=== PATIENT | female | born 1985 | race African-American/Black ===

== ENCOUNTER 2018-03-12 09:33 | Emergency (ER) | payer MEDICAID, SELFPAY ==
[2018-03-12 09:34] VITALS: BP 119/75; PULSE 71; RESP 16; TEMP 36.9; O2SAT 97; BMI 23.0
[2018-03-12 10:01] LABS: Mucous, Urine 0 SEEN /hpf (<or=2+)
[2018-03-12 10:06] LABS: Color, Urine Yellow (Yellow); Glucose, Dipstick Normal (Normal); Ketone-Dipstick Negative (Negative); Leukocyte Esterase-Dipstick 100 /ul (Negative); Nitrite-Dipstick Negative (Negative); Occult Blood-Urine 250 /ul (Negative); Protein-Dipstick Negative (Negative); Urine Bilirubin Dipstick Negative (Negative); Urine Clarity Sl. Cloudy (Clear); Urine Urobilinogen Normal (Normal); Urine pH 6.5 (5.0 - 8.0)
[2018-03-12 10:07] LABS: Internal QC Validated? YES +Cl - CLEAR BKGD; Pregnancy, Urine Negative Negative
[2018-03-12 10:13] LABS: Bacteria 1+ /hpf (None Seen); Red Blood Cells-Urine 25-50 SEEN /hpf (0-5); Squamous Epithelial Cells - UA 0-5 SEEN /hpf (5-10); White Blood Cells 10-25 SEEN /hpf (0-5)
--- NOTE | 2018-03-12 10:33 | ED.VISSUMM ---
- ER Visit Summary Date of Service: 03/12/18 Chief Complaint: Vaginal discharge History of Present Illness: The patient is a 33 F who presents with vaginal discharge. This is been present for about 1 week. She describes it as thick and cottage cheese like. She also notes an odor. She states that during sexual intercourse 1 week ago a condom broke so she is concerned for STD. She does have a history of prior STD. She is currently on her menstrual period and also complains of some pelvic cramping. However her pelvic cramping has actually been present for 3 weeks. Eyes any dysuria frequency urgency. She denies fevers vomiting or diarrhea. Physical Examination: Afebrile vitals normal Moist mucous membranes Heart regular rate and rhythm Lungs are clear Abdomen soft nontender nondistended Alert Test Results: Urinalysis shows 100 leukocyte esterase 10-25 WBCs 0-5 epithelial cells and 25-50 RBCs. is negative. HIV testing was sent which will be run batched on Sunday. Gonorrhea and Chlamydia testing are pending. Emergency Department Course and Treatment: Patient was given Diflucan here for presumed yeast vaginitis. She was also started on Bactrim for UTI. She does not wish to wait on the gonorrhea and Chlamydia testing. We will notify her of any positive results. Patient discharged. Treatment Plan: [] Disposition: Discharge Impression: Yeast vaginitis UTI This note was generated with [employer] dictation software. It may contain incorrect words, spelling, and punctuation that were not noted in review of the chart prior to signing ED Disposition - Plan for ED Patient: Chief Complaint: Female C/O Referrals: Care Physician,No Primary [Primary Care Provider] -
--- NOTE | 2018-03-12 10:39 | ED.DEP ---
ED Disposition - Plan for ED Patient: Chief Complaint: Female C/O Instructions: ED UTI Cystitis Female, Vaginal Infection: Yeast (Candidiasis) Prescriptions: Smz/Tmp Ds [Bactrim Ds] 1 tab PO BID #6 tab Referrals: Care Physician,No Primary [Primary Care Provider] -
[2018-03-12] MEDS: Fluconazole 100 MG Tablet 150 MG PO (10:56)
[2018-03-12 11:02] VITALS: BP 108/67; PULSE 72; RESP 15; O2SAT 98
[2018-03-12 12:28] LABS: Chlamydia Trachomatis by PCR Negative (Negative); Neisserai gonorrhoeae by PCR Negative (Negative); Probe Check PASS; Sample Adequacy Control PASS; Specimen Processing Control PASS
[2018-03-13 10:41] LABS: HIV - WCH Non-Reactive (Nonreactive)
== END 2018-03-12 11:03 | disposition home or self-care (01) ==
PROVIDERS: Emergency Provider Emergency Medicine
DX: B37.3 Candidiasis of vulva and vagina (principal); N39.0 Urinary tract infection, site not specified; Z72.0 Tobacco use
CPT/HCPCS: 36415; 81001; 81025; 86703; 87491; 87591; 99283

== ENCOUNTER 2018-07-23 12:13 | Emergency (ER) | payer MEDICAID, SELFPAY ==
[2018-07-23 12:14] VITALS: BP 135/91; PULSE 92; RESP 18; TEMP 36.6; O2SAT 98; BMI 25.4
[2018-07-23 12:55] LABS: Bacteria 0 SEEN /hpf (None Seen); Mucous, Urine 0 SEEN /hpf (<or=2+); Red Blood Cells-Urine 0 SEEN /hpf (0-5); Squamous Epithelial Cells - UA 0 SEEN /hpf (5-10); White Blood Cells 0 SEEN /hpf (0-5)
[2018-07-23 13:01] LABS: Internal QC Validated? YES +Cl - CLEAR BKGD; Pregnancy, Urine Negative Negative
[2018-07-23 13:07] LABS: Color, Urine Straw (Yellow); Glucose, Dipstick Normal (Normal); Ketone-Dipstick Negative (Negative); Leukocyte Esterase-Dipstick Negative /ul (Negative); Nitrite-Dipstick Negative (Negative); Occult Blood-Urine Negative /ul (Negative); Protein-Dipstick Negative (Negative); Urine Bilirubin Dipstick Negative (Negative); Urine Clarity Clear (Clear); Urine Urobilinogen Normal (Normal); Urine pH 6.5 (5.0 - 8.0)
[2018-07-23] MEDS: Ondansetron ODT 4 MG Tablet 8 MG PO (13:12)
[2018-07-23] MEDS: metroNIDAZOLE 500 MG Tablet 2000 MG PO (13:13)
[2018-07-23] MEDS: Azithromycin 250 MG Tablet 1000 MG PO (13:13)
[2018-07-23] MEDS: Ceftriaxone 500 MG Vial 250 MG IM (13:23)
--- NOTE | 2018-07-23 13:41 | ED.VISSUMM ---
- ER Visit Summary Date of Service: 07/23/18 Chief Complaint: Vaginal discharge History of Present Illness: The patient is a 33 F presenting for evaluation due to concern for vaginal discharge. Patient reports that she has a sexual partner that she found out was actually involved in a homosexual relationship with another person that is known to be HIV positive. Patient reports of the course last 6 months she has been dealing with white foul-smelling discharge. She does endorse that occasionally she has some pelvic pain. She also endorses that occasionally she has been having some fevers but she denies any unintended weight loss. He also endorses that she has some dysuria. Physical Examination: Vital signs within normal limits. Well-nourished female no acute distress. Moist mucous membranes. Heart regular lungs clear. Abdomen soft and nontender. exam shows normal external genitalia no vaginal lesions. No blood in the vault, there is thin [id number] discharge the patient's cervix appears normal. No motion tenderness on bimanual exam normal uterus and no evidence of adnexal masses or tenderness. Test Results: Patient was positive for trichomonas, urinalysis hCG and GC and Chlamydia negative. HIV is nonreactive. Emergency Department Course and Treatment: Patient presented due to concern for STI exposure. Workup showed patient to be positive for trichomonas. Patient was actually treated with Rocephin and azithromycin Flagyl and Zofran prior to the results of her GC and chlamydia. Patient was given primary care with which to follow-up. Disposition: Discharge Impression: 1. Trichomonas This note was generated with [employer] dictation software. It may contain incorrect words, spelling, and punctuation that were not noted in review of the chart prior to signing ED Disposition - Plan for ED Patient: Disposition: Home or Assisted Living Chief Complaint: Complaint Diagnosis: Trichomonas infection Instructions: ED Vaginitis Trichomonas Referrals: Lowell Bailey III, MD [STAFF PHYSICIAN] -
[2018-07-23 14:00] VITALS: PULSE 88; RESP 16
[2018-07-23 14:00] LABS: HIV - WCH Non-Reactive (Nonreactive)
[2018-07-23 14:39] LABS: Chlamydia Trachomatis by PCR Negative (Negative); Neisserai gonorrhoeae by PCR Negative (Negative); Probe Check PASS; Sample Adequacy Control PASS; Specimen Processing Control PASS
== END 2018-07-23 14:00 | disposition home or self-care (01) ==
PROVIDERS: Emergency Provider Emergency Medicine
DX: A59.00 Urogenital trichomoniasis, unspecified (principal)
CPT/HCPCS: 81001; 81025; 86703; 87210; 87491; 87591; 96372; 99283